=== PATIENT | female | born 1995 | race Caucasian/White ===

== ENCOUNTER 2017-01-25 12:55 | Outpatient (CLI) | payer MEDICAID, OTHER ==
[2017-01-25 14:37] LABS: APPEARANCE,URINE CLOUDY; BILIRUBIN,URINE NEGATIVE (NEGATIVE); GLUCOSE, URINE NEGATIVE (NEGATIVE); KETONES,URINE NEGATIVE (NEGATIVE); LEUKOCYTE ESTERASE,URINE NEGATIVE (NEGATIVE); NITRITE,URINE NEGATIVE (NEGATIVE); PROTEIN,URINE 30 mg/dL (NEGATIVE); URINE SPECIFIC GRAVITY 1.025
[2017-01-25 15:04] LABS: URINE BARBITURATES SCREEN NEGATIVE; URINE METHADONE SCREEN NEGATIVE; URINE OPIATES LOW NEGATIVE; URINE PHENCYCLIDINE SCREEN NEGATIVE
== END 2017-01-25 15:10 | disposition home or self-care (01) ==
LOC: LC 12:55
PROVIDERS: ATTEND Specialist
PROC: 4A1HXCZ Monitoring of Products of Conception, Cardiac Rate, External Approach (ICD-10-PCS; principal; 2017-01-25)
DX: Z36 Encounter for antenatal screening of mother (principal); Z3A.39 39 weeks gestation of pregnancy
CPT/HCPCS: 59025; 87210; 81005; 80307; Q0114

== ENCOUNTER 2017-01-26 01:20 | Inpatient (IN) | payer MEDICAID ==
[2017-01-26] MEDS ORDERED: NALBUPHINE HCL INJ 10 MG/1 ML AMPULE INJ ONE (03:04)
[2017-01-26] MEDS ORDERED: NALBUPHINE HCL INJ 10 MG/1 ML AMPULE ONE (03:08)
[2017-01-26 03:30] LABS: ABSOLUTE BASOPHILS # (AUTO) 0.1 10^3/uL (0.0-0.2); ABSOLUTE EOSINOPHILS # (AUTO) 0.2 10^3/uL (0.0-0.6); ABSOLUTE LYMPHOCYTES (AUTO) 2.1 10^3/uL (0.5-4.7); ABSOLUTE MONOCYTES (AUTO) 0.9 10^3/uL (0.1-1.4); ABSOLUTE NEUT (AUTO) 7.3 10^3/uL (1.7-8.2); EOSINOPHILS % (AUTO) 1.9 % (0-6); HEMATOCRIT 34.2 % (36.0-47.0); HEMOGLOBIN 11.5 g/dL (12.0-15.5); HGB HCT DIFFERENCE 0.3; LYMPHOCYTES % (AUTO) 19.8 % (13-45); MEAN CORPUSCULAR HEMOGLOBIN 27.3 pg (27.0-33.4); MEAN CORPUSCULAR HGB CONC 33.5 g/dL (32.0-36.0); MEAN CORPUSCULAR VOLUME 81 fl (80-97); MONOCYTES % (AUTO) 8.5 % (3-13); RED CELL DISTRIBUTION WIDTH 12.9 % (11.5-14.0); SEGMENTED NEUTROPHILS % (AUTO) 68.8 % (42-78); WHITE BLOOD COUNT 10.6 10^3/uL (4.0-10.5)
[2017-01-26] MEDS: RINGERS SOLUTION,LACTATED 1,000 ML IV PRN ×2 (03:50→04:32)
[2017-01-26] MEDS ORDERED: LIDOCAINE 1% INJ-PF (10 MG/ML) 30 ML SDV ONE (04:38)
[2017-01-26] MEDS ORDERED: MISOPROSTOL 0.2 MG TABLET ONE (04:38)
[2017-01-26] MEDS ORDERED: OXYTOCIN/NORMAL SALINE 20 UNIT/1,000 ML RTUINJ ONE (04:38)
[2017-01-26] MEDS ORDERED: DIPH/PERTUSS(ACELL)/TETANUS VAC/PF 0.5 ML SYR (>=10YO) IM PRN (05:41)
[2017-01-26] MEDS ORDERED: MEASLES,MUMPS&RUBELLA VACC/PF 0.5 ML VIAL SUBCUT PRN (05:41)
[2017-01-26] MEDS ORDERED: ZOLPIDEM TARTRATE 5 MG TABLET PO PRN (05:41)
[2017-01-26] MEDS ORDERED: BENZOCAINE/MENTHOL AEROSOL SPRAY 56 ML TOP PRN (05:41)
[2017-01-26] MEDS ORDERED: DIBUCAINE 1% OINTMENT 28 GM TP PRN (05:41)
[2017-01-26] MEDS ORDERED: ACETAMINOPHEN WITH CODEINE #3 TABLET PO PRN ×2 (05:41)
[2017-01-26] MEDS ORDERED: IBUPROFEN 800 MG TABLET ONE (05:48)
[2017-01-26] MEDS: IBUPROFEN 800 MG TABLET PO SCH ×3 (05:50→21:14)
--- NOTE | 2017-01-26 08:56 | PDOC PROGRESS REPORT ---
Subjective-OB Subjective: Post Delivery Day: 21 year old. Denies any needs at this time Physical Exam (OB) Vital Signs: Intake & Output 01/25/17 01/26/17 01/27/17 06:59 06:59 06:59 Weight 94.5 kg - General Note:: Drowsy from sheet hanger delivery. - Lochia Lochia Amount: Small 10-25 ml - Abdomen Description: Soft, Round Hernia Present: No Bowel Sounds: Normoactive Flatus Presence: Absent Stool: No Objective-Diagnostic Laboratory: 01/26/17 03:19 01/26/17 01/26/17 03:19 03:19 WBC 10.6 H RBC 4.20 Hgb 11.5 L Hct 34.2 L MCV 81 MCH 27.3 MCHC 33.5 RDW 12.9 Plt Count 269 Seg Neutrophils % 68.8 Lymphocytes % 19.8 Monocytes % 8.5 Eosinophils % 1.9 Basophils % 1.0 Absolute Neutrophils 7.3 Absolute Lymphocytes 2.1 Absolute Monocytes 0.9 Absolute Eosinophils 0.2 Absolute Basophils 0.1 Blood Type A POSITIVE Antibody Screen NEGATIVE
[2017-01-26] MEDS: FERROUS SULFATE 325 MG TABLET PO SCH ×2 (11:07→17:15)
[2017-01-26] MEDS: PRENATAL VITAMIN W-O CA NO5/FE FUMARATE/FA CAPSULE PO SCH (11:07)
[2017-01-26] MEDS: DOCUSATE SODIUM 100 MG CAPSULE PO SCH ×2 (11:08→17:15)
[2017-01-26] MEDS: SENNOSIDES/DOCUSATE 8.6-50 MG 1 EACH TABLET PO SCH (11:08)
[2017-01-26 12:08] LABS: ADD HIVPANEL? NO; HIV (1 AND 2) ANTIBODY NEGATIVE (NEGATIVE)
[2017-01-26 17:55] LABS: CHLAM PCR NOT DETECTED (NOT DETECT)
--- NOTE | 2017-01-26 23:43 | Admission Physical ---
Datetime Report Generated by CPN: 01/26/2017 23:41 CURRENT ADMISSION Hx Assessment: The History has been Reviewed and is Current Chief Complaint: Uterine Contractions Admit Plan: Initiate Labor Protocol ALLERGIES Medication Allergies: No Medication Allergies: No Known Allergies (01/26/2017) Medication Allergies: No Known Allergies (01/25/2017) Latex: No Latex Allergies Food Allergies: None Environmental Allergies: Feathers - severe OBSTETRICAL HISTORY EDC: 02/01/2017 00:00 : 1 Para: 0 Term: 0 : 0 SAB: 0 IAB: 0 Ectopic: 0 Livin Cesareans: 0 VBACs: 0 Multiple Births: 0 Gestational Diabetes: No Rh Sensitization: No Incompetent Cervix: No REBA: No Infertility: No ART Treatment: No Uterine Anomaly: No IUGR: No Hx Previous C/S: No Macrosomia: No Hx Loss/Stillborn: No PIH: No Hx : No Placenta Previa/Abruption: No Depression/PP Depression: No PTL/PROM: No Post Hemorrhage: No Current Procedures: Ultrasound Obstetrical History Comments: G1 - current - OB transfer at 38.5wks SEE RECORDS Alcohol: No Marijuana : No Marijuana Frequency: Occasional Marijuana Comments: Smoked at beginning of Cocaine: No Other Illicit Drugs: No Cigarettes: Former Smoker. [id number] MEDICAL HISTORY Diabetes: No Blood Transfusion: No Pulmonary Disease (Asthma, TB): No Breast Disease: No Hypertension: No Management Technician Surgery: No Heart Disease: No Hosp/Surgery: No Autoimmune Disorder: No Anesthetic Complications: No Kidney Disease: No Abnormal Pap Smear: No Neuro/Epilepsy: No Psychiatric Disorders: No Other Medical Diseases: No Hepatitis/Liver Disease: No Significant Family History: No Varicosities/Phlebitis: No Trauma/Violence : No Thyroid Dysfunction: No INFECTIOUS HISTORY Gonorrhea: No Genital Herpes: No Chlamydia: No Tuberculosis: No Syphilis: No Hepatitis: No HIV/AIDS Exposure: No Rash or Viral Illness: No HPV: No PHYSICAL EXAM General: Normal HEENT: Normal Neurologic: Normal Thyroid: Normal Heart: Normal Lungs: Normal Breast: Normal Back: Normal Abdomen: Normal Genitourinary Exam: Normal Extremities: Normal DTRs: Normal Pelvic Type: Adequate VAGINAL EXAM Dilatation: 5 FETUS A EGA: 39.1 Monitoring: External US Admit Comment: term labor-admit, pain management, monitor PLANS FOR LABOR AND DELIVERY Labor and Delivery: None Pain Management: None Feeding Preference: Breast Benefit of Breast Feed Discussed: Yes Circumcision: No INFORMED CONSENT Signature: with User ID: [email or web address]
[2017-01-27] MEDS: IBUPROFEN 800 MG TABLET PO SCH ×3 (05:06→21:22)
[2017-01-27 06:52] LABS: HEMATOCRIT 30.4 % (36.0-47.0); HEMOGLOBIN 10.2 g/dL (12.0-15.5); HGB HCT DIFFERENCE 0.2; MEAN CORPUSCULAR HEMOGLOBIN 27.3 pg (27.0-33.4); MEAN CORPUSCULAR HGB CONC 33.6 g/dL (32.0-36.0); MEAN CORPUSCULAR VOLUME 81 fl (80-97); RED BLOOD COUNT 3.75 10^6/uL (3.72-5.28); RED CELL DISTRIBUTION WIDTH 12.8 % (11.5-14.0); WHITE BLOOD COUNT 9.2 10^3/uL (4.0-10.5)
--- NOTE | 2017-01-27 08:41 | PDOC PROGRESS REPORT ---
Subjective-OB Subjective: Post Delivery Day: 1 21 year old. Denies any needs at this time, states lochia is stable pain is well controlled, voiding without difficulty. Physical Exam (OB) Vital Signs: Temp Pulse Resp BP Pulse Ox 97.8 F 68 16 126/74 H 100 01/27/17 07:25 01/27/17 07:25 01/27/17 07:25 01/27/17 07:25 01/27/17 07:25 Intake & Output 01/26/17 01/27/17 01/28/17 06:59 06:59 06:59 Weight 94.5 kg - Lochia Lochia Amount: Small 10-25 ml Lochia Color: Rubra/Red - Abdomen Description: Soft, Round Hernia Present: No Fundal Description: Firm, Midline Fundal Height: u/u - u/2 Objective-Diagnostic Laboratory: 01/27/17 06:42 01/27/17 06:42 WBC 9.2 RBC 3.75 Hgb 10.2 L Hct 30.4 L MCV 81 MCH 27.3 MCHC 33.6 RDW 12.8 Plt Count 237 Assessment and Plan(PN) - Assessment and Plan (1) Delivery normal Is this a current diagnosis for this admission?: YesPlan: routine pp care. - Time Spent with Patient Time with patient: Less than 15 minutes Critical Time spent with patient: Less than 15 minutes Medications reviewed and adjusted accordingly: Yes - Disposition Anticipated Discharge: Home Within: within 24 hours
[2017-01-27] MEDS: DOCUSATE SODIUM 100 MG CAPSULE PO SCH ×2 (10:30→18:34)
[2017-01-27] MEDS: FERROUS SULFATE 325 MG TABLET PO SCH ×2 (10:30→18:34)
[2017-01-27] MEDS: SENNOSIDES/DOCUSATE 8.6-50 MG 1 EACH TABLET PO SCH (10:30)
[2017-01-27] MEDS: PRENATAL VITAMIN W-O CA NO5/FE FUMARATE/FA CAPSULE PO SCH (10:30)
[2017-01-28] MEDS: IBUPROFEN 800 MG TABLET PO SCH (06:01)
--- NOTE | 2017-01-28 10:01 | PDOC PROGRESS REPORT ---
Subjective-OB Subjective: Post Delivery Day: 21 year old. Denies any needs at this time Doing well, no c/o, baby in NICU with breathing issues, breast feeding,voiding, scant lochia Physical Exam (OB) Vital Signs: Temp Pulse Resp BP Pulse Ox 97.9 F 83 16 131/82 H 100 01/28/17 07:59 01/28/17 07:59 01/28/17 07:59 01/27/17 19:58 01/28/17 07:59 - PIH/Pre-Eclampsia Clonus: Negative - Lochia Lochia Amount: Small 10-25 ml Lochia Color: Rubra/Red - Abdomen Description: Soft, Round Hernia Present: No Fundal Description: Firm, Midline Fundal Height: u/u - u/2 Objective-Diagnostic Laboratory: 01/27/17 06:42 Assessment and Plan(PN) - Assessment and Plan (2) Qualifiers: Weeks of gestation: 39 weeks Qualified Code(s): Z3A.39 - 39 weeks gestation of Is this a current diagnosis for this admission?: Yes (3) Delivery normal Is this a current diagnosis for this admission?: Yes - Time Spent with Patient Time with patient: Less than 15 minutes Medications reviewed and adjusted accordingly: Yes - Disposition Anticipated Discharge: Home Within: Other - home today
--- NOTE | 2017-01-28 10:06 | PDOC DISCHARGE SUMMARY ---
Final Diagnosis Discharge Date: 01/28/17 - Final Diagnosis (1) History of asthma Is this a current diagnosis for this admission?: Yes (2) Is this a current diagnosis for this admission?: Yes (3) Delivery normal Is this a current diagnosis for this admission?: Yes Discharge Data - Discharge Medication Home Medications: Albuterol Sulfate [Ventolin Hfa 8 gm Mdi (1 Mdi/ER Disp)] 2 puff IH ASDIR PRN Fluticasone/Salmeterol [Advair 250-50 Diskus 28 dose] 1 inh IH Q12H 01/25/17 Vit/Iron Fumarate/FA [ Tablet] 1 tab PO DAILY 01/25/17 Docusate Sodium [Colace 100 mg Capsule] 100 mg PO BID #60 capsule 01/27/17 Ferrous Sulfate [Feosol 325 mg Tablet] 325 mg PO BID #60 tablet 01/27/17 Ibuprofen [Motrin 800 mg Tablet] 800 mg PO Q8 #60 tablet 01/27/17 Gestational Age: 39.1 Reason(s) for Admission: Onset of Labor Procedures: Ultrasound Intrapartum Procedure(s): Spontaneous Vaginal Delivery Complication(s): Laceration-Periurethral Laceration-Degree: 1st - Data Baby 1 Male at 1 minute: 8 at 5 minutes: 9 Weight: 3.572 kg Home with Mother: No Complications: Yes - breathing issues - Diagnosis Test Laboratory: Temp Pulse Resp BP Pulse Ox 97.9 F 83 16 131/82 H 100 01/28/17 07:59 01/28/17 07:59 01/28/17 07:59 01/27/17 19:58 01/28/17 07:59 01/26/17 01/27/17 03:19 06:42 RBC 4.20 3.75 Hgb 11.5 L 10.2 L Hct 34.2 L 30.4 L - Discharge information/Instructions Discharge Activity: Activity As Tolerated, No Lifting Over 10 Pounds, Pelvic Rest, No tub bath Discharge Diet: As Tolerated, Regular Disposition: HOME, SELF-CARE Follow up with: [facility] in: 4, Weeks
[2017-01-28] MEDS: PRENATAL VITAMIN W-O CA NO5/FE FUMARATE/FA CAPSULE PO SCH (10:33)
[2017-01-28] MEDS: DOCUSATE SODIUM 100 MG CAPSULE PO SCH (10:33)
[2017-01-28] MEDS: SENNOSIDES/DOCUSATE 8.6-50 MG 1 EACH TABLET PO SCH (10:33)
[2017-01-28] MEDS: FERROUS SULFATE 325 MG TABLET PO SCH (10:33)
[2017-01-28 11:35] VITALS: BP 125/68
--- NOTE | 2017-01-28 11:44 | Delivery Summary ---
Del Sum A-C Datetime Report Generated by CPN: 01/28/2017 11:44 DELIVERY PERSONNEL DELIVERY PERSONNEL: [phone];[id number] Delivery Doctor:: Kandy Benitez MD Labor and Delivery Nurse:: Yvrose Diaz RNtechnical training coordinator Nurse:: Kristin Delvalle RN Nursery Nurse:: Suzy Grove RN Nursery Nurse:: Aparna Dallas RN Household Manager/COUNTY HOME DEMONSTRATOR: Esther Green, ST MATERNAL INFORMATION Delivery Anesthesia: None Medications After Delivery: Pitocin Drip 20 Units/1000ml NSS Estimated Blood Loss (ml): 200 Maternal Complications: Precipitous Labor (<3hrs) Provider Comments: Pt progressed to of male with apgars 8 and 9. Head delivered OA. SHoulders and body delivered easily. DELIMER/OP bulb suctioned. Cord clamped and cut. Placenta spont and intact. First degree lacs repaired. Mom and baby doing well. LABOR SUMMARY EDC: 02/01/2017 00:00 No. Babies in Womb: 1 Attempted: No Labor Anesthesia: None LABOR INFORMATION Reason for Induction: Not Applicable Onset of Labor: 01/26/2017 02:48 Complete Dilatation: 01/26/2017 04:42 Oxytocin: N/A Group B Beta Strep: unknown Antibiotics # of Doses: 0 Steroids Given: None Reason Steroids Not Administered: Not Applicable MEMBRANES Membranes Rupture Method: Spontaneous Rupture of Membranes: 01/26/2017 04:42 Length of Rupture (hr): 0.32 Amniotic Fluid Color: Moderate Meconium Amniotic Fluid Amount: Moderate Amniotic Fluid Odor: Normal STAGES OF LABOR Stage 1 hr: 1 Stage 1 min: 54 Stage 2 hr: 0 Stage 2 min: 19 Stage 3 hr: 0 Stage 3 min: 4 Total Time in Labor hr: 2 Total Time in Labor min: 17 VAGINAL DELIVERY Episiotomy: None Laceration Extension: First Degree Laceration Type: Periurethral Laceration Repair: Yes Laceration Repair Note: Repaired right labial/periurethral lac -1st degree and 1st degree perineal lac with 1 percent lidcoaine and 3- chromic. Sponge Count Correct: N/A Sharps Count Correct: N/A CSECTION DELIVERY Primary Indication: N/A Secondary Indication: N/A CSection Incidence: N/A Labor: N/A Elective: N/A CSection Incision: N/A BABY A INFORMATION Infant Delivery Date/Time: 01/26/2017 05:01 Method of Delivery: Vaginal Born in Route : No : N/A Forceps: N/A Vacuum Extraction: N/A Shoulder Dystocia : No PRESENTATION/POSITION BABY A Presentation: Cephalic Cephalic Presentation: Vertex Vertex Position: Left Occipital Anterior Breech Presentation: N/A PLACENTA INFORMATION BABY A Placenta Delivery Time : 01/26/2017 05:05 Placenta Method of Delivery: Spontaneous Placenta Status: Delivered SCORES BABY A Heart Rate 1 min: >100 bpm Resp Effort 1 min: Good Cry Reflex Irritability 1 min: Cough or Sneeze or Pulls Away Muscle Tone 1 min: Active Motion Color 1 min: Blue/Pale Resuscitation Effort 1 min: Tactile Stimulation SCORE 1 MIN: 8 Heart Rate 5 min: >100 bpm Resp Effort 5 min: Good Cry Reflex Irritability 5 min: Cough or Sneeze or Pulls Away Muscle Tone 5 min: Active Motion Color 5 min: Body Perry[place], Extremities Blue Resuscitation Effort 5 min: Tactile Stimulation SCORE 5 MIN: 9 INFORMATION BABY A Gestational Age at Delivery: 39.1 Gestational Status: Full Term- 39- 40.6 Weeks Infant Outcome : Liveborn Condition : Stable Infant Sex: Male IDENTIFICATION BABY A Infant Verification Date/Time: 01/26/2017 05:06 ID Band Number: [id number] Mother's Name Verified: Yes Infant RN Verifying Infant: , RN Additional Verifying Personnel: LVenancio, HEAD CHEF WEIGHT/LENGTH BABY A Infant Birthweight (gm): 3585 Infant Weight (lb): 7 Weight (oz): 14 Infant Length (in): 19.00 Infant Length (cm): 48.26 CORD INFORMATION BABY A No. Cord Vessels: 3 Nuchal Cord : N/A Cord Blood Taken: Yes-For Storage (Mom's Blood type +) Infant Suction: Mouth; Nose ASSESSMENT BABY A Complications: None Physical Findings at Delivery: Within Normal Limits Respirations: Appears Normal Skin to Skin: Yes Historiography Professor/ALS Called : No Infant Care By: Rigoberto Perfecto, RN Transferred To: Remains with Mother BABY B INFORMATION : N/A SIGNATURES Signature: with User ID: [email or web address]
--- NOTE | 2017-02-02 23:41 | Non Stress Test Report ---
Non Stress Test Datetime Report Generated by CPN: 02/02/2017 23:40 DEMOGRAPHIC Test Number: 1 EGA NST: 39.0 INDICATION Indication for Study: Ordered by Provider Indication for Study (NST) Other: Labor check MONITORING Monitor Explained: Monitor Explained; Test Explained; Patient Verbalized Understanding Time on Monitor: 01/25/2017 13:46 Time off Monitor: 01/25/2017 14:15 NST Duration: 29 NST INTERVENTIONS NST Interventions: None Physician Notified NST: Dr Neilsen BABY A: [id number] BABY A Movement : Present Contraction Frequency : 2-4 FHR Baseline : 135 Accelerations : 15X15 Decelerations : None Variability : Moderate 6-25bpm NST Review: Meets Criteria for Reactive NST NST Review and Verified By : B Baidy RN NST Results: Reactive NST REPORT Report Trigger: Send Report
== END 2017-01-28 12:43 | disposition home or self-care (01) | DRG 775 ==
LOC: LC 01:20 → LR 02:52 → 2S 07:50
PROVIDERS: ADMIT Specialist; ATTEND Specialist
PROC: 10E0XZZ Delivery of Products of Conception, External Approach (ICD-10-PCS; principal; 2017-01-26)
PROC: 0UQMXZZ Repair Vulva, External Approach (ICD-10-PCS; 2017-01-26)
PROC: 4A1HXCZ Monitoring of Products of Conception, Cardiac Rate, External Approach (ICD-10-PCS; 2017-01-26)
DX: O99.52 Diseases of the respiratory system complicating childbirth (principal); J45.909 Unspecified asthma, uncomplicated; O71.82 Other specified trauma to perineum and vulva; O62.3 Precipitate labor; O77.0 Labor and delivery complicated by meconium in amniotic fluid; Z87.891 Personal history of nicotine dependence; Z3A.39 39 weeks gestation of pregnancy; Z37.0 Single live birth
CPT/HCPCS: 36415; 59025; 80307; 81005; 85025; 85027; 86592; 86701; 86762; 86850; 86900; 86901; 87210; 87340; 87491; 87591; 88307; 90715; J2300; J2590; J3490; Q0114